=== PATIENT | male | born 1970 | race Caucasian/White ===

== ENCOUNTER 2020-06-02 13:41 | Emergency (ER) | payer BC ==
[2020-06-02] MEDS ORDERED: cloNIDine 0.1 MG Tab PO ONE (14:18)
--- NOTE | 2020-06-02 16:06 | EDM.PDOC ---
ED HPI GENERAL MEDICAL PROBLEM - General Chief Complaint: ENT Problem Stated Complaint: NOSE BLEED Time Seen by Provider: 06/02/20 13:55 - History of Present Illness INITIAL COMMENTS - FREE TEXT/NARRATIVE: 49-year-old male presents to the emergency room with a bloody nose. This started shortly before arrival. The patient denies any precipitating event except he had blood coming out of his right nose. The patient has chronic hypertension he is on losartan, hydrochlorothiazide and Norvasc. However the patient has not taken these for a couple of days. He states that every once in a while he just misses his medications. Patient has no history of heart problems or breathing difficulties. The patient lives in [place] but works appear and is scheduled to be back home in another week or so. Patient states his blood pressure could be elevated somewhat because he has gained 15 pounds over the last couple of months. Patient does not have any chest pain or breathing difficulties at this time. Patient does not take daily aspirin and does not take any blood thinners. - Related Data Allergies Allergy/AdvReac Type Severity Reaction Status Date / Time No Known Allergies Allergy Verified 06/02/20 13:48 Home Meds: Home Meds Losartan/Hydrochlorothiazide [Losartan-HCTZ 100-25 MG] 1 each PO DAILY #30 tablet 06/02/20 [Rx] Losartan/Hydrochlorothiazide [Losartan-HCTZ 100-25 MG] 1 tab PO DAILY 06/02/20 [History] amLODIPine Besylate [Amlodipine Besylate] 10 mg PO DAILY 06/02/20 [History] amLODIPine Besylate [Amlodipine Besylate] 10 mg PO DAILY #30 tablet 06/02/20 [Rx] Past Medical History - Past Health History Medical/Surgical History: Denies Medical/Surgical History Cardiovascular History: Reports: Hypertension Social & Family History - Family History Family Medical History: No Pertinent Family History - Caffeine Use Caffeine Use: Reports: Coffee, Soda - Recreational Drug Use Recreational Drug Use: No ED ROS ENT - Review of Systems Review Of Systems: See Below Constitutional: Reports: No Symptoms HEENT: Reports: Nosebleed. Denies: Dental Pain, Eye Pain, Hearing Loss, Nose Pain, Sinus Problem, Throat Pain Respiratory: Reports: No Symptoms Cardiovascular: Reports: No Symptoms GI/Abdominal: Reports: No Symptoms ED EXAM, ENT - Physical Exam Exam: See Below Exam Limited By: No Limitations General Appearance: Alert, No Apparent Distress, Other (Pressure is quite elevated and he has bleeding from the right naris.) Eye Exam: Bilateral Eye: Normal Inspection Nose: Other (From the right naris. When I came into the exam room he had 1 of those plastic clips on his nose he was not actively bleeding I removed this had him blow his nose profusely and do a wet warm towel removing a couple of large clots from the right side. After this the patient has not had any appreciable bleeding) Mouth/Throat: Other (All amount of purplish to almost black old streaks coming from the posterior pharynx no acute bleeding. This cleared up over time) Head: Atraumatic, Normocephalic Neck: Normal Inspection, Supple. No: Lymphadenopathy (L), Lymphadenopathy (R) Respiratory/Chest: No Respiratory Distress, Lungs Clear, Normal Breath Sounds Cardiovascular: Regular Rate, Rhythm, No Edema, No Murmur GI/Abdominal: Normal Bowel Sounds, Soft, Non-Tender Neurological: Alert, Oriented, Normal Cognition ED ENT PROCEDURES - Epistaxis Procedure Indication: Epistaxis Recent anticoagulants/antiplatlets: No Uncontrolled HTN: Yes Recent septal/nasal surgery: No Site of bleeding: Right Nare Clearing of clots: Patient Blew Nose Complications: No Complication Description: Patient blew his nose held direct pressure to the anterior nose with his fingers for 15 minutes and the bleeding completely stopped. We addressed his hypertension as well. Course - Vital Signs Last Recorded V/S: Last Vital Signs Temp 36.9 C 06/02/20 13:46 Pulse 113 H 06/02/20 15:39 Resp 20 06/02/20 13:46 BP 149/108 H 06/02/20 15:39 Pulse Ox 97 06/02/20 15:39 - Orders/Labs/Meds Labs: Laboratory Tests 06/02/20 06/02/20 06/02/20 Range/Units 15:17 15:17 15:17 WBC 6.36 (4.23-9.07) K/mm3 RBC 5.29 (4.63-6.08) M/mm3 Hgb 15.0 (13.7-17.5) gm/dl Hct 45.2 (40.1-51.0) % MCV 85.4 (79.0-92.2) fl MCH 28.4 (25.7-32.2) pg MCHC 33.2 (32.2-35.5) g/dl RDW Std Deviation 40.4 (35.1-43.9) fL Plt Count 312 (163-337) K/mm3 MPV 9.3 L (9.4-12.3) fl Neut % (Auto) 67.9 (34.0-67.9) % Lymph % (Auto) 22.0 (21.8-53.1) % Garza % (Auto) 8.2 (5.3-12.2) % Eos % (Auto) 1.3 (0.8-7.0) Baso % (Auto) 0.3 (0.1-1.2) % Neut # (Auto) 4.32 (1.78-5.38) K/mm3 Lymph # (Auto) 1.40 (1.32-3.57) K/mm3 Garza # (Auto) 0.52 (0.30-0.82) K/mm3 Eos # (Auto) 0.08 (0.04-0.54) K/mm3 Baso # (Auto) 0.02 (0.01-0.08) K/mm3 PT 10.3 (9.7-12.0) SECONDS INR 0.96 APTT 25.4 (21.7-31.4) SECONDS Sodium 145 (136-145) mEq/L Potassium 3.7 (3.5-5.1) mEq/L Chloride 107 (98-107) mEq/L Carbon Dioxide 28 (21-32) mEq/L Anion Gap 13.7 (5-15) BUN 16 (7-18) mg/dL Creatinine 1.3 (0.7-1.3) mg/dL Est Cr Clr Drug Dosing 91.28 mL/min Estimated GFR (MDRD) 58 (>60) mL/min BUN/Creatinine Ratio 12.3 L (14-18) Glucose 139 H (74-106) mg/dL Calcium 9.0 (8.5-10.1) mg/dL Total Bilirubin 0.3 (0.2-1.0) mg/dL AST 13 L (15-37) U/L ALT 39 (16-63) U/L Alkaline Phosphatase 70 (46-116) U/L Total Protein 7.6 (6.4-8.2) g/dl Albumin 3.9 (3.4-5.0) g/dl Globulin 3.7 gm/dL Albumin/Globulin Ratio 1.1 (1-2) Meds: Medications Discontinued Medications Generic Name Dose Route Start Last Admin Trade Name Lebron PRN Reason Stop Dose Admin Clonidine HCl 0.1 mg 06/02/20 14:18 06/02/20 14:32 Catapres PO 06/02/20 14:19 0.1 mg ONETIME ONE Administration - Re-Assessments/Exams Free Text/Narrative Re-Assessment/Exam: 06/02/20 16:19 After initial clearing of his nose with thorough blowing of the nose then direct pressure to the anterior nose patient had no more bleeding. His blood pressure was staying quite elevated I did give him 0.1 mg of oral clonidine and the patient did bring in his regular blood pressure medication that he is almost out of I had him take 1 of each of these. His blood pressures are improving. Labs reviewed his creatinine is little higher than I had like to see for gentleman his age but still within normal range I did discuss this with the patient. And really enforced the importance of taking his blood pressure medication as directed. Departure - Departure Time of Disposition: 16:21 Disposition: Home, Self-Care 01 Clinical Impression: Anterior epistaxis, Uncontrolled hypertension - Discharge Information Referrals: PCP,None [Primary Care Provider] - Forms: ED Department Discharge Additional Instructions: Return to the emergency room with any questions problems or worsening symptoms. Control the nose bleeding as we demonstrated and instructed you to. If this does not work immediately return to the emergency room. Use some KY jelly to the bottom of your nose every couple hours while awake. Take your blood pressure medication as directed. I have refilled your medications for another month. Follow-up with your regular physician when you return to [place]. Sepsis Event Note (ED) - Evaluation Sepsis Screening Result: No Definite Risk - Focused Exam Vital Signs: Vital Signs Temp Pulse Resp BP BP Pulse Ox 06/02/20 15:39 113 H 149/108 H 97 06/02/20 14:32 187/134 H 06/02/20 14:22 120 H 160/113 H 06/02/20 14:00 118 H 177/122 H 100 06/02/20 13:46 36.9 C 126 H 20 185/123 H 93 L
== END 2020-06-02 16:37 | disposition home or self-care (01) ==
LOC: JD.ED 13:41
DX: R04.0 Epistaxis (principal); I10 Essential (primary) hypertension; Z79.899 Other long term (current) drug therapy
CPT/HCPCS: 36415; 80053; 85025; 85610; 85730; 99283; A9270; 30901